=== PATIENT | female | born 1990 | race Caucasian/White ===

== ENCOUNTER 2024-04-07 14:13 | Emergency (ER) | payer BC, MEDICAID ==
[~2024-04-07] VITALS: Ht 160 cm; Wt 91.0 kg
[2024-04-07 16:30] VITALS: PULSE 76; RESP 24; O2SAT 96
[2024-04-07] MEDS: IPRATROPIUM BROMIDE (0.02%) 0.5MG/2.5ML NEB HHN STA (16:30)
[2024-04-07] MEDS: ALBUTEROL (0.083%) 2.5MG/3ML NEB HHN ONE ×2 (16:30→18:55)
[2024-04-07] MEDS: PREDNISONE 20MG TABLET PO ONE (16:39)
[2024-04-07 18:55] VITALS: PULSE 84; RESP 24; O2SAT 97
[2024-04-07] MEDS ORDERED: P50 MT (19:46)
[2024-04-07] MEDS ORDERED: ALBU18HF2 IH (19:46)
[2024-04-07] MEDS ORDERED: ALBU05 NEB (19:46)
[2024-04-07 19:53] VITALS: BP 122/89; PULSE 99; RESP 20; TEMP 36.66960; O2SAT 96
== END 2024-04-07 20:00 | disposition home or self-care (01) ==
LOC: ER 14:13
DX: J45.901 Unspecified asthma with (acute) exacerbation (principal)
CPT/HCPCS: 94640; 94070; 99285; J7512; Z7610 ×3